=== PATIENT | female | born 1980 | race Caucasian/White ===

== ENCOUNTER 2022-08-21 18:59 | Inpatient (IN) | payer OTHER ==
[2022-08-21 19:12] VITALS: BMI 29.0
[2022-08-21] MEDS ORDERED: ACETAMINOPHEN 1000 MG/100 ML BAG IVPB ONE (21:12)
[2022-08-21] MEDS ORDERED: Methylnaltrexone Bromide 12 MG/0.6 ML KIT SQ ONE (21:15)
[2022-08-21] MEDS ORDERED: ACETAMINOPHEN INJECTION 100 ML IVPB ONE (21:40)
[2022-08-21] MEDS ORDERED: SODIUM CHLORIDE 0.9% 500 ML INFUS.BAG IV ONE (21:55)
[2022-08-21 22:22] LABS: HEMATOCRIT 43.8 % (32.4-45.2); HEMOGLOBIN 14.9 GM/dL (10.7-15.3); MCH 28.5 pg (25.7-33.7); MEAN CELL VOLUME 83.8 fl (80-96); MEAN PLT VOLUME 8.7 fl (7.5-11.1); PLATELET COUNT 272 10^3/uL (134-434); RBC 5.22 M/mm3 (3.60-5.2); RDW 12.6 % (11.6-15.6); WHITE BLOOD COUNT 20.9 K/mm3 (4.0-10.0)
[2022-08-21 22:24] LABS: HCG,QUALITATIVE URINE Negative
[2022-08-21 22:25] LABS: EPI CELLS 14 /uL (0-25.1); HYALINE CASTS 0 /uL (0-3.1); PH,URINE 5.5 (5.0-8.0); URINE APPEARANCE CLOUDY; URINE BACTERIA 430 /uL (0-1359); URINE BILIRUBIN NEGATIVE (NEGATIVE); URINE COLOR YELLOW; URINE GLUCOSE (UA) NEGATIVE (NEGATIVE); URINE KETONE NEGATIVE (NEGATIVE); URINE LEUK ESTERASE NEGATIVE (NEGATIVE); URINE NITRITE NEGATIVE (NEGATIVE); URINE PROTEIN 1+ (NEGATIVE); URINE RBC 16 /uL (0-23.9); URINE WBC 30 /uL (0-25.8)
[2022-08-21 22:47] LABS: CALCIUM 9.5 mg/dL (8.5-10.1)
[2022-08-21 22:49] LABS: ALBUMIN 4.5 g/dl (3.4-5.0); BLOOD UREA NITROGEN 11.8 mg/dL (7-18)
[2022-08-21 22:51] LABS: CREATININE 0.7 mg/dL (0.55-1.3)
[2022-08-21 22:53] LABS: BILIRUBIN,TOTAL 0.7 mg/dL (0.2-1); TOT PROT 8.4 g/dl (6.4-8.2)
[2022-08-21 23:01] LABS: ANISOCYTOSIS 0; HELMET CELLS 0; HOWELL-JOLLY BODIES 0; MACROCYTOSIS 0; OVALOCYTE 0; PLATELET ESTIMATE NORMAL; ROULEAU 0; SICKELED CELLS 0; TARGET CELLS 0; TEAR DROP CELLS 0; TOXIC GRANULATION 0
[2022-08-22] MEDS ORDERED: morphine CARPU-JECT 2 MG/1 ML DISP.SYRIN IVPUSH ONE (00:31)
[2022-08-22] MEDS ORDERED: PIPERACILLIN/TAZOB 3.375 GM 3.375 GM in DEXTROSE 5%-WATER - 50 ML IVPB ONE (01:59)
[2022-08-22] MEDS ORDERED: VANCOMYCIN 1,000 MG in DEXTROSE 5%-WATER - 250 ML IVPB ONE (02:00)
[2022-08-22] MEDS ORDERED: PIPERACILLIN/TAZOB 3.375 GM 3.375 GM/50 ML BAG IVPB ONE (02:02)
[2022-08-22] MEDS ORDERED: morphine CARPU-JECT 4 MG/1 ML DISP.SYRIN IVPUSH ONE (04:34)
[2022-08-22] MEDS ORDERED: morphine SULFATE 4 MG/ML VIAL ONE (04:57)
[2022-08-22] MEDS ORDERED: LACTATED RINGERS SOLUTION 1,000 ML IV SCH ×4 (05:00→16:45)
[2022-08-22] MEDS ORDERED: ACETAMINOPHEN 1000 MG/100 ML BAG IVPB PRN ×2 (05:14→23:00)
[2022-08-22] MEDS ORDERED: traMADol HCL 50 MG TABLET PO PRN (05:15)
[2022-08-22] MEDS ORDERED: NICOTINE 7 MG/24 HOURS TOPICAL PATCH TD PRN ×2 (05:17→17:10)
[2022-08-22 06:41] LABS: INR 1.19 (0.83-1.09); PROTHROMBIN TIME (PATIENT) 13.7 SEC (9.7-13.0)
[2022-08-22 06:44] LABS: ACTIVATED PTT 30.3 SECONDS (25.2-36.5)
[2022-08-22 07:25] LABS: HEMOGLOBIN 14.4 GM/dL (10.7-15.3); MCH 28.4 pg (25.7-33.7); MCHC 34.3 g/dl (32.0-36.0); MEAN CELL VOLUME 82.9 fl (80-96); MEAN PLT VOLUME 8.4 fl (7.5-11.1); PLATELET COUNT 233 10^3/uL (134-434); RBC 5.06 M/mm3 (3.60-5.2); RDW 12.7 % (11.6-15.6); WHITE BLOOD COUNT 23.4 K/mm3 (4.0-10.0)
[2022-08-22 07:44] LABS: LACTIC ACID 2.6 mmol/L (0.4-2.0)
[2022-08-22 07:52] LABS: BLOOD UREA NITROGEN 9.7 mg/dL (7-18); MAGNESIUM 1.5 mg/dL (1.8-2.4)
[2022-08-22 07:55] LABS: BILIRUBIN,TOTAL 1.6 mg/dL (0.2-1); CREATININE 0.8 mg/dL (0.55-1.3); PHOSPHOROUS 2.3 mg/dL (2.5-4.9); TOT PROT 7.5 g/dl (6.4-8.2)
[2022-08-22] MEDS ORDERED: MAGNESIUM SULF 50% (8.12 MEQ/2 ML-1 GM VIAL) IVPB ONE (08:34)
[2022-08-22 09:03] LABS: MAGNESIUM 1.4 mg/dL (1.8-2.4)
[2022-08-22 09:22] LABS: ANISOCYTOSIS 0; MACROCYTOSIS 0
[2022-08-22] MEDS ORDERED: VANCOMYCIN/WATER 1250 MG 1,250 MG/250 ML BAG IVPB SCH (10:00)
[2022-08-22] MEDS ORDERED: VANCOMYCIN 1,000 MG in DEXTROSE 5%-WATER - 250 ML IVPB SCH (10:00)
[2022-08-22] MEDS ORDERED: PIPERACILLIN/TAZOB 3.375 GM 3.375 GM in DEXTROSE 5%-WATER - 50 ML IVPB SCH ×2 (10:00→14:00)
[2022-08-22] MEDS ORDERED: PROPOFOL 20 ML ONE (12:33)
[2022-08-22] MEDS ORDERED: LIDOCAINE HCL/PF 2% SDV 5ML VIAL ONE (12:33)
[2022-08-22] MEDS ORDERED: MIDAZOLAM HCL 2 MG/2 ML SINGLE DOSE VIAL ONE (12:33)
[2022-08-22] MEDS ORDERED: HYDROmorphone HCl 2 MG/ML VIAL ONE (13:41)
[2022-08-22] MEDS ORDERED: VANCOMYCIN 1 GM in NS (PRE-DOCKED) 1,000 MG/250 ML IVPB ONE ×2 (14:00→14:06)
[2022-08-22] MEDS ORDERED: PIPERACILLIN/TAZOB 4.5 GM 4.5 GM in DEXTROSE 5%-WATER 100 ML IVPB SCH (14:00)
[2022-08-22] MEDS ORDERED: VANCOMYCIN/WATER FOR INJ (PEG) 1,000 MG/200 ML BAG IVPB SCH (14:00)
[2022-08-22] MEDS ORDERED: KETAMINE HCL 500 MG/10 ML VIAL ONE (14:05)
[2022-08-22] MEDS ORDERED: ROCURONIUM BROMIDE 50 MG/5 ML SYRINGE ONE (14:24)
[2022-08-22] MEDS ORDERED: SEVOFLURANE 250 ML BTL ONE (14:39)
[2022-08-22] MEDS ORDERED: NEOSTIGMINE METHYLSULFATE 0.5 MG/1 ML - 10 ML MDV ONE (15:55)
[2022-08-22] MEDS ORDERED: GLYCOPYRROLATE 0.2 MG/1 ML VIAL ONE (15:56)
[2022-08-22] MEDS ORDERED: KETOROLAC TROMETHAMINE 30 MG/1 ML VIAL ONE (16:01)
[2022-08-22] MEDS ORDERED: HYDROmorphone *PCA* 10MG/50ML DISP.SYRIN ONE (16:05)
[2022-08-22] MEDS ORDERED: BENZOIN/ALOE VERA/STORAX/TOLU 58 ML BOTTLE ONE (16:24)
[2022-08-22] MEDS ORDERED: PROMETHAZINE HCL 25 MG/1 ML VIAL IVPUSH PRN (16:28)
[2022-08-22] MEDS ORDERED: ONDANSETRON 4 MG/2 ML VIAL IVPUSH PRN ×2 (16:28→17:10)
[2022-08-22] MEDS ORDERED: HYDROmorphone *PCA* 10MG/50ML DISP.SYRIN PCA SCH (16:30)
[2022-08-22] MEDS: HYDROmorphone *PCA* 10MG/50ML DISP.SYRIN PCA SCH (17:30)
[2022-08-22] MEDS ORDERED: DEXTROSE IVPB ONE (17:46)
[2022-08-22] MEDS ORDERED: SODIUM PHOSPHATE IVPB ONE (17:46)
[2022-08-22] MEDS ORDERED: WATER IVPB ONE (17:46)
[2022-08-22] MEDS ORDERED: SODIUM PHOSPHATE - 15 MM in DEXTROSE 5%-WATER - 250 ML IVPB ONE (18:30)
[2022-08-22] MEDS: SODIUM CHLORIDE 1,000 ML IV SCH (19:02)
[2022-08-22] MEDS: PIPERACILLIN/TAZOB 4.5 GM 4.5 GM in DEXTROSE 5%-WATER 100 ML IVPB SCH (21:18)
[2022-08-23] MEDS: PIPERACILLIN/TAZOB 4.5 GM 4.5 GM in DEXTROSE 5%-WATER 100 ML IVPB SCH ×3 (01:14→17:16)
[2022-08-23] MEDS: KETOROLAC TROMETHAMINE 30 MG/1 ML VIAL IVPUSH PRN (08:59)
[2022-08-23 09:33] LABS: BASO % 0.3 % (0-2.0); HEMATOCRIT 35.2 % (32.4-45.2); LYMPH % 7.8 % (8-40); MCH 28.6 pg (25.7-33.7); MCHC 34.2 g/dl (32.0-36.0); MEAN CELL VOLUME 83.9 fl (80-96); MEAN PLT VOLUME 9.1 fl (7.5-11.1); MONO % 5.7 % (3.8-10.2); NEUT % 86.2 % (42.8-82.8); PLATELET COUNT 184 10^3/uL (134-434); RBC 4.19 M/mm3 (3.60-5.2); WHITE BLOOD COUNT 15.4 K/mm3 (4.0-10.0)
[2022-08-23] MEDS: LORazepam 2 MG/ML SDV VIAL IVPB PRN ×2 (10:29→15:46)
[2022-08-23 10:46] LABS: TOT PROT 5.5 g/dl (6.4-8.2)
[2022-08-23 10:47] LABS: CREATININE 0.5 mg/dL (0.55-1.3); PHOSPHOROUS 2.2 mg/dL (2.5-4.9)
[2022-08-23 10:50] LABS: ALBUMIN 2.6 g/dl (3.4-5.0); CALCIUM 7.6 mg/dL (8.5-10.1)
[2022-08-23] MEDS: KCL 10 MEQ IVPB 10 MEQ/100 ML INFUS.BAG IVPB SCH ×3 (11:26→15:44)
[2022-08-23] MEDS ORDERED: SODIUM PHOSPHATE - 30 MM in DEXTROSE 5%-WATER - 500 ML IVPB ONE (12:00)
[2022-08-23] MEDS: SODIUM CHLORIDE 1,000 ML IV SCH (17:16)
[2022-08-23] MEDS: HYDROmorphone *PCA* 10MG/50ML DISP.SYRIN PCA SCH (17:16)
[2022-08-24] MEDS: PIPERACILLIN/TAZOB 4.5 GM 4.5 GM in DEXTROSE 5%-WATER 100 ML IVPB SCH ×3 (02:22→18:04)
[2022-08-24] MEDS: HYDROmorphone *PCA* 10MG/50ML DISP.SYRIN PCA SCH ×2 (03:06→15:01)
[2022-08-24] MEDS: SODIUM CHLORIDE 1,000 ML IV SCH ×2 (05:53→18:04)
[2022-08-24 09:38] LABS: HEMATOCRIT 30.9 % (32.4-45.2); HEMOGLOBIN 10.5 GM/dL (10.7-15.3); MCH 28.9 pg (25.7-33.7); MCHC 34.2 g/dl (32.0-36.0); MEAN CELL VOLUME 84.5 fl (80-96); MEAN PLT VOLUME 8.5 fl (7.5-11.1); PLATELET COUNT 175 10^3/uL (134-434); RBC 3.65 M/mm3 (3.60-5.2); RDW 12.7 % (11.6-15.6); WHITE BLOOD COUNT 11.5 K/mm3 (4.0-10.0)
[2022-08-24 10:05] LABS: ANISOCYTOSIS 0; HELMET CELLS 0; HOWELL-JOLLY BODIES 0; MACROCYTOSIS 0; OVALOCYTE 0; ROULEAU 0; SICKELED CELLS 0; TARGET CELLS 0; TEAR DROP CELLS 0; TOXIC GRANULATION 0
[2022-08-24] MEDS: LORazepam 2 MG/ML SDV VIAL IVPB PRN (10:18)
[2022-08-24] MEDS: KETOROLAC TROMETHAMINE 30 MG/1 ML VIAL IVPUSH PRN (10:18)
[2022-08-24 10:45] LABS: ALBUMIN 2.6 g/dl (3.4-5.0); CALCIUM 7.8 mg/dL (8.5-10.1)
[2022-08-24 10:46] LABS: BLOOD UREA NITROGEN 10.7 mg/dL (7-18); MAGNESIUM 1.9 mg/dL (1.8-2.4)
[2022-08-24 10:49] LABS: CREATININE 0.5 mg/dL (0.55-1.3)
[2022-08-24 10:50] LABS: BILIRUBIN,TOTAL 0.7 mg/dL (0.2-1); TOT PROT 5.5 g/dl (6.4-8.2)
[2022-08-24] MEDS: ACETAMINOPHEN 1000 MG/100 ML BAG IVPB SCH (16:37)
[2022-08-25] MEDS: HYDROmorphone *PCA* 10MG/50ML DISP.SYRIN PCA SCH (00:47)
[2022-08-25] MEDS: ACETAMINOPHEN 1000 MG/100 ML BAG IVPB SCH ×4 (01:30→21:18)
[2022-08-25] MEDS: PIPERACILLIN/TAZOB 4.5 GM 4.5 GM in DEXTROSE 5%-WATER 100 ML IVPB SCH ×3 (02:30→17:21)
[2022-08-25] MEDS: SODIUM CHLORIDE 1,000 ML IV SCH ×3 (06:45→23:05)
[2022-08-25 10:16] LABS: BASO % 0.4 % (0-2.0); EOS % 1.2 % (0-4.5); HEMATOCRIT 29.4 % (32.4-45.2); HEMOGLOBIN 10.2 GM/dL (10.7-15.3); LYMPH % 11.5 % (8-40); MCH 28.9 pg (25.7-33.7); MCHC 34.8 g/dl (32.0-36.0); MEAN CELL VOLUME 83.2 fl (80-96); MEAN PLT VOLUME 8.8 fl (7.5-11.1); MONO % 7.2 % (3.8-10.2); NEUT % 79.7 % (42.8-82.8); PLATELET COUNT 198 10^3/uL (134-434); RBC 3.53 M/mm3 (3.60-5.2); RDW 12.3 % (11.6-15.6); WHITE BLOOD COUNT 8.5 K/mm3 (4.0-10.0)
[2022-08-25 10:51] LABS: CREATININE 0.5 mg/dL (0.55-1.3); PHOSPHOROUS 2.3 mg/dL (2.5-4.9)
[2022-08-25 10:52] LABS: ALBUMIN 2.6 g/dl (3.4-5.0); BILIRUBIN,TOTAL 0.8 mg/dL (0.2-1); MAGNESIUM 1.9 mg/dL (1.8-2.4)
[2022-08-25 10:53] LABS: BLOOD UREA NITROGEN 13.6 mg/dL (7-18); TOT PROT 5.7 g/dl (6.4-8.2)
[2022-08-25] MEDS ORDERED: oxyCODONE HCL 5 MG TABLET PO PRN (12:08)
[2022-08-25] MEDS ORDERED: POTASSIUM CHLORIDE TABS 10 MEQ TABLET.ER (FP) PO ONE (13:29)
[2022-08-25] MEDS: DOCUSATE SODIUM 100 MG CAPSULE (FP) PO SCH ×2 (13:41→21:17)
[2022-08-25] MEDS: POLYETHYLENE GLYCOL (HEALTHYLAX) 3350 17 GM PACKET PO SCH (14:21)
[2022-08-25] MEDS: IBUPROFEN 800 MG/8 ML IJ IVPB SCH (16:05)
[2022-08-25] MEDS: ENOXAPARIN NA (PORCINE) 40 MG/0.4 ML DISP.SYRIN SQ SCH (17:36)
[2022-08-26] MEDS: IBUPROFEN 800 MG/8 ML IJ IVPB SCH ×3 (00:09→17:38)
[2022-08-26] MEDS: PIPERACILLIN/TAZOB 4.5 GM 4.5 GM in DEXTROSE 5%-WATER 100 ML IVPB SCH ×4 (01:47→19:05)
[2022-08-26] MEDS: ACETAMINOPHEN 1000 MG/100 ML BAG IVPB SCH ×2 (03:00→10:10)
[2022-08-26] MEDS: oxyCODONE HCL 5 MG TABLET PO PRN ×2 (03:25→21:05)
[2022-08-26] MEDS: DOCUSATE SODIUM 100 MG CAPSULE (FP) PO SCH ×3 (06:45→21:52)
[2022-08-26] MEDS: LORazepam 2 MG/ML SDV VIAL IVPB PRN (07:47)
[2022-08-26] MEDS: ENOXAPARIN NA (PORCINE) 40 MG/0.4 ML DISP.SYRIN SQ SCH (10:05)
[2022-08-26] MEDS: POLYETHYLENE GLYCOL (HEALTHYLAX) 3350 17 GM PACKET PO SCH (10:08)
[2022-08-26 12:10] LABS: HEMATOCRIT 29.6 % (32.4-45.2); HEMOGLOBIN 10.6 GM/dL (10.7-15.3); MCH 29.5 pg (25.7-33.7); MCHC 35.8 g/dl (32.0-36.0); MEAN CELL VOLUME 82.3 fl (80-96); MEAN PLT VOLUME 8.9 fl (7.5-11.1); PLATELET COUNT 260 10^3/uL (134-434); RBC 3.59 M/mm3 (3.60-5.2); RDW 12.5 % (11.6-15.6); WHITE BLOOD COUNT 10.5 K/mm3 (4.0-10.0)
[2022-08-26] MEDS ORDERED: amLODIPine BESYLATE 2.5 MG TABLET (FP) PO ONE (12:14)
[2022-08-26 12:29] LABS: ALBUMIN 2.7 g/dl (3.4-5.0); CALCIUM 8.4 mg/dL (8.5-10.1)
[2022-08-26 12:30] LABS: BLOOD UREA NITROGEN 11.1 mg/dL (7-18)
[2022-08-26 12:32] LABS: CREATININE 0.5 mg/dL (0.55-1.3)
[2022-08-26 12:34] LABS: BILIRUBIN,TOTAL 0.9 mg/dL (0.2-1); TOT PROT 5.9 g/dl (6.4-8.2)
[2022-08-26 12:47] LABS: ANISOCYTOSIS 0; HELMET CELLS 0; HOWELL-JOLLY BODIES 0; MACROCYTOSIS 0; OVALOCYTE 0; ROULEAU 0; SICKELED CELLS 0; TARGET CELLS 0; TEAR DROP CELLS 0; TOXIC GRANULATION 0
[2022-08-26] MEDS: SODIUM CHLORIDE 1,000 ML IV SCH ×2 (14:42→17:38)
[2022-08-26] MEDS: NAPH,MB-DB/K PH,MBDB POWDER PACKET PO SCH (21:52)
[2022-08-27] MEDS: IBUPROFEN 800 MG/8 ML IJ IVPB SCH ×2 (01:12→08:25)
[2022-08-27] MEDS: PIPERACILLIN/TAZOB 4.5 GM 4.5 GM in DEXTROSE 5%-WATER 100 ML IVPB SCH ×2 (02:40→10:49)
[2022-08-27] MEDS: DOCUSATE SODIUM 100 MG CAPSULE (FP) PO SCH ×3 (05:34→21:21)
[2022-08-27] MEDS: ENOXAPARIN NA (PORCINE) 40 MG/0.4 ML DISP.SYRIN SQ SCH (09:57)
[2022-08-27] MEDS: POLYETHYLENE GLYCOL (HEALTHYLAX) 3350 17 GM PACKET PO SCH (11:18)
[2022-08-27] MEDS: NAPH,MB-DB/K PH,MBDB POWDER PACKET PO SCH ×2 (11:18→21:21)
[2022-08-27] MEDS ORDERED: ONDANSETRON 4 MG/2 ML VIAL IVPUSH ONE (23:25)
[2022-08-28] MEDS ORDERED: ONDANSETRON *ODT* 4 MG TABLET SL ONE (00:04)
[2022-08-28] MEDS: oxyCODONE HCL 5 MG TABLET PO PRN ×3 (01:54→15:04)
[2022-08-28] MEDS: DOCUSATE SODIUM 100 MG CAPSULE (FP) PO SCH ×2 (06:29→13:12)
[2022-08-28] MEDS: AMOX TR/POT CLAV 875MG/125MG TABLETS (FP) PO SCH ×2 (08:06→17:20)
[2022-08-28] MEDS ORDERED: POLYETHYLENE GLYCOL (HEALTHYLAX) 3350 17 GM PACKET PO SCH (10:00)
[2022-08-28] MEDS: ENOXAPARIN NA (PORCINE) 40 MG/0.4 ML DISP.SYRIN SQ SCH (11:00)
[2022-08-28] MEDS: NAPH,MB-DB/K PH,MBDB POWDER PACKET PO SCH ×2 (11:00→21:06)
[2022-08-28] MEDS: IBUPROFEN 600 MG TABLET (FP) PO PRN (13:12)
[2022-08-28 13:37] LABS: HEMATOCRIT 34.2 % (32.4-45.2); HEMOGLOBIN 12.1 GM/dL (10.7-15.3); MCH 29.5 pg (25.7-33.7); MCHC 35.4 g/dl (32.0-36.0); MEAN CELL VOLUME 83.3 fl (80-96); MEAN PLT VOLUME 8.3 fl (7.5-11.1); PLATELET COUNT 288 10^3/uL (134-434); RDW 12.7 % (11.6-15.6); WHITE BLOOD COUNT 10.9 K/mm3 (4.0-10.0)
[2022-08-28 13:57] LABS: CALCIUM 8.3 mg/dL (8.5-10.1)
[2022-08-28 13:58] LABS: ALBUMIN 2.7 g/dl (3.4-5.0); BLOOD UREA NITROGEN 9.4 mg/dL (7-18); MAGNESIUM 1.6 mg/dL (1.8-2.4)
[2022-08-28 14:01] LABS: CREATININE 0.5 mg/dL (0.55-1.3)
[2022-08-28 14:02] LABS: BILIRUBIN,TOTAL 0.6 mg/dL (0.2-1); TOT PROT 5.9 g/dl (6.4-8.2)
[2022-08-28 14:20] LABS: ANISOCYTOSIS 0; HELMET CELLS 0; HOWELL-JOLLY BODIES 0; MACROCYTOSIS 0; OVALOCYTE 0; ROULEAU 0; SICKELED CELLS 0; TARGET CELLS 0; TEAR DROP CELLS 0; TOXIC GRANULATION 0
[2022-08-28] MEDS ORDERED: MAGNESIUM OXIDE 400 MG TABLET (FP) PO ONE (14:45)
[2022-08-29] MEDS: IBUPROFEN 600 MG TABLET (FP) PO PRN (04:50)
[2022-08-29] MEDS: AMOX TR/POT CLAV 875MG/125MG TABLETS (FP) PO SCH (08:27)
[2022-08-29] MEDS ORDERED: POLYETHYLENE GLYCOL (HEALTHYLAX) 3350 17 GM PACKET PO SCH (10:00)
[2022-08-29] MEDS: NAPH,MB-DB/K PH,MBDB POWDER PACKET PO SCH (11:12)
[2022-08-29] MEDS: ENOXAPARIN NA (PORCINE) 40 MG/0.4 ML DISP.SYRIN SQ SCH (11:12)
[2022-08-29 12:12] VITALS: PULSE 72; RESP 18; TEMP 98.1
[2022-08-29 15:09] VITALS: BP 130/80
== END 2022-08-29 16:00 | disposition home or self-care (01) | DRG 221 ==
LOC: JER 18:59 → JERBED 08-22 03:13 → J5S 08-22 08:09 → J6S 08-22 15:15
PROVIDERS: ADMIT Internal Medicine; ATTEND Nurse Practitioner Family
PROC: 0D1M4Z4 Bypass Descending Colon to Cutaneous, Percutaneous Endoscopic Approach (ICD-10-PCS; 2022-08-22)
PROC: 0DBP4ZZ Excision of Rectum, Percutaneous Endoscopic Approach (ICD-10-PCS; 2022-08-22)
PROC: 0DBL4ZZ Excision of Transverse Colon, Percutaneous Endoscopic Approach (ICD-10-PCS; 2022-08-22)
PROC: 0DBE4ZZ Excision of Large Intestine, Percutaneous Endoscopic Approach (ICD-10-PCS; 2022-08-22)
PROC: 0DTN4ZZ Resection of Sigmoid Colon, Percutaneous Endoscopic Approach (ICD-10-PCS; principal; 2022-08-22 13:00)
DX: K63.1 Perforation of intestine (nontraumatic) (principal); F11.20 Opioid dependence, uncomplicated; D72.829 Elevated white blood cell count, unspecified; F17.210 Nicotine dependence, cigarettes, uncomplicated; F41.9 Anxiety disorder, unspecified; K59.09 Other constipation; R74.01 Elevation of levels of liver transaminase levels; Z93.3 Colostomy status
CPT/HCPCS: 36415; 74177-TC; 76705-TC; 80053; 81003; 82272; 82550; 82962; 83605; 83735; 84100; 84443; 84703; 85025; 85610; 85730; 86140; 86850; 86900; 86901; 87040; 87070; 87075; 87086; 87205; 88307-TC; 93005; 93010; 94760; 97116-GP; 97161-GP; 99285-25; C9803-CS; Q0162; U0003; U0005

== ENCOUNTER 2024-06-22 12:31 | Emergency (ER) | payer SELFPAY ==
[2024-06-22 12:44] VITALS: BP 137/54; PULSE 73; RESP 18; TEMP 98.3; BMI 27.8
[2024-06-22] MEDS ORDERED: LIDOCAINE 4% PATCH TP ONE (13:01)
[2024-06-22] MEDS ORDERED: METHOCARBAMOL 500 MG TABLET ONE (13:01)
[2024-06-22] MEDS ORDERED: KETOROLAC TROMETHAMINE 15 MG/ML VIAL ONE (13:03)
[2024-06-22] MEDS: METHOCARBAMOL 750 MG TABLET PO ONE (13:08)
[2024-06-22] MEDS: KETOROLAC TROMETHAMINE 15 MG/ML VIAL IVPUSH ONE (13:31)
[2024-06-22] MEDS: LIDOCAINE 5% TOPICAL PATCH TP ONE (13:31)
[2024-06-22 13:36] LABS: BASO % 0.3 % (0-2.0); EOS % 1.8 % (0-4.5); HEMATOCRIT 40.1 % (32.4-45.2); HEMOGLOBIN 13.8 GM/dL (10.7-15.3); LYMPH % 18.7 % (8-40); MCH 28.8 pg (25.7-33.7); MCHC 34.4 g/dl (32.0-36.0); MEAN CELL VOLUME 83.7 fl (80-96); MEAN PLT VOLUME 8.4 fl (7.5-11.1); MONO % 9.5 % (3.8-10.2); NEUT % 69.7 % (42.8-82.8); PLATELET COUNT 203 10^3/uL (134-434); RBC 4.79 M/mm3 (3.60-5.2); RDW 13.1 % (11.6-15.6); WHITE BLOOD COUNT 8.6 K/mm3 (4.0-10.0)
[2024-06-22 13:40] LABS: INR 0.98 (0.83-1.09); PROTHROMBIN TIME (PATIENT) 11.3 SEC (9.7-13.0)
[2024-06-22 13:43] LABS: ACTIVATED PTT 35.1 SECONDS (25.2-36.5)
[2024-06-22 13:46] LABS: POTASSIUM 4.3 mmol/L (3.5-5.1)
[2024-06-22 13:48] LABS: ALBUMIN 3.9 g/dl (3.4-5.0); BLOOD UREA NITROGEN 12.4 mg/dL (7-18); CALCIUM 9.3 mg/dL (8.5-10.1); MAGNESIUM 1.7 mg/dL (1.8-2.4)
[2024-06-22 13:52] LABS: CREATININE 0.6 mg/dL (0.55-1.3)
[2024-06-22 13:53] LABS: BILIRUBIN,TOTAL 0.5 mg/dL (0.2-1); TOT PROT 7.3 g/dl (6.4-8.2)
[2024-06-22] MEDS ORDERED: LIDOCAINE PATCH REMOVAL MC SCH (22:00)
== END 2024-06-22 14:52 | disposition home or self-care (01) ==
LOC: JER 12:31
PROC: 3E0333Z Introduction of Anti-inflammatory into Peripheral Vein, Percutaneous Approach (ICD-10-PCS; principal; 2024-06-22)
DX: G56.91 Unspecified mononeuropathy of right upper limb (principal); R20.2 Paresthesia of skin
CPT/HCPCS: 36415; 70450-TC; 71045-TC-FY; 80053; 83735; 84484; 84703; 85025; 85610; 85730; 93005; 93010; 99285-25